=== PATIENT | male | born 1990 | race African-American/Black ===

== ENCOUNTER 2021-01-14 20:57 | Emergency (ER) | payer SELFPAY ==
[~2021-01-14] VITALS: Ht 172.7 cm; Wt 145.0 kg
[2021-01-14 23:45] LABS: BASOPHILS % 0.3 % (0.0-2.0); HEMATOCRIT. 41.9 % (42.0-52.0); LYMPHOCYTES % 25.5 % (20.0-50.0); MEAN PLATELET VOLUME 7.8 fl (7.4-10.4); MONOCYTES % 6.4 % (2.0-8.0); NEUTROPHILS % 67.8 % (40.0-76.0); PLATELET 232 x1000/uL (130-400); RED BLOOD CELL COUNT 5.18 mill/uL (4.7-6.1); RED CELL DISTRIBUTION WIDTH 14.3 % (11.6-14.6)
[2021-01-14 23:53] LABS: CHLORIDE 103 mEq/L (98-107)
[2021-01-15] MEDS ORDERED: ACETAMINOPHEN 500MG TABLET PO ONE (00:45)
[2021-01-15] MEDS ORDERED: SODIUM CHLORIDE 0.9% 1,000 ML IV ONE (01:00)
[2021-01-15 01:23] LABS: CLARITY URINE CLEAR (CLEAR); COLOR URINE DARK YELLOW (YELLOW); KETONES URINE 2+ (NEGATIVE); LEUKOCYTE ESTERASE URINE NEGATIVE (NEGATIVE); NITRITE URINE NEGATIVE (NEGATIVE); OCCULT BLOOD URINE 1+ (NEGATIVE); PH URINE 5.5 (4.5-8.0); PROTEIN URINE 4+ (NEGATIVE)
[2021-01-15] MEDS ORDERED: DOXY-326 MT (05:29)
[2021-01-15] MEDS ORDERED: CEFTRIAXONE SODIUM 500 MG/VIAL IM ONE (05:30)
[2021-01-15] MEDS ORDERED: DOXYCYCLINE HYCLATE 100MG CAPSULE PO ONE (05:30)
[2021-01-15 05:49] VITALS: BP 132/88
== END 2021-01-15 05:58 | disposition home or self-care (01) ==
LOC: ER 20:57
DX: R42 Dizziness and giddiness (principal); R63.0 Anorexia; E86.0 Dehydration; K62.89 Other specified diseases of anus and rectum; I10 Essential (primary) hypertension; Z20.822 Contact with and (suspected) exposure to COVID-19
CPT/HCPCS: 36415; 71045; 74176; 80053; 81003; 83605; 85025; 85379; 87426; 93005; 96360; 96372; 99285; C9803; J0696; J7030; U0003; U0005; Z7610